=== PATIENT | female | born 1975 | race Caucasian/White ===

== ENCOUNTER 2020-04-01 22:31 | Inpatient (IN) | payer MEDICAID, OTHER ==
[~2020-04-01] VITALS: Ht 152.4 cm; Wt 79.4 kg
[2020-04-01] MEDS ORDERED: DEXAMETHASONE 4MG/ML 1ML VIAL IV SCH (23:45)
[2020-04-01] MEDS ORDERED: ASPIRIN 81MG TABLET PO ONE (23:45)
[2020-04-02 00:21] LABS: BASOPHILS % 0.1 % (0.0-2.0); CHLORIDE 104 mEq/L (98-107); HEMATOCRIT. 43.3 % (36.0-48.0); HEMOGLOBIN. 14.8 g/dL (12.0-16.0); LYMPHOCYTES % 13.6 % (20.0-50.0); MEAN CORPUSCULAR HEMOGLOBIN 29.1 pg (28.0-32.0); MEAN CORPUSCULAR VOLUME 85.3 fL (81.0-99.0); MEAN PLATELET VOLUME 7.8 fl (7.4-10.4); MONOCYTES % 3.9 % (2.0-8.0); NEUTROPHILS % 82.4 % (40.0-76.0); PLATELET 290 x1000/uL (130-400); RED BLOOD CELL COUNT 5.08 mill/uL (4.2-5.4); RED CELL DISTRIBUTION WIDTH 12.9 % (11.6-14.6)
[2020-04-02 01:11] LABS: D-DIMER 0.55 mg/L FEU (<0.50); PARTIAL THROMBOPLASTIN TIME 31.5 sec (23.4-31.0); PROTHROMBIN TIME 10.3 sec (9.6-11.0)
[2020-04-02] MEDS ORDERED: DOCUSATE SODIUM 100MG CAPSULE PO PRN (09:30)
[2020-04-02] MEDS ORDERED: MAGNESIUM/ALUMINUM HYDROXIDE/SIMETHICONE 30ML UDC PO PRN (09:30)
[2020-04-02] MEDS ORDERED: ONDANSETRON HCL 4MG/2ML INJ IV PRN (09:30)
[2020-04-02] MEDS ORDERED: DEXTROSE 50% WATER 50ML SYRINGE IV PRN (09:30)
[2020-04-02] MEDS ORDERED: CLONIDINE 0.1MG TABLET PO PRN (09:30)
[2020-04-02] MEDS ORDERED: MORPHINE SULFATE 2 MG/ML CPJ (NOT FOR IM USE) IV PRN (09:30)
[2020-04-02] MEDS ORDERED: ALBUTEROL 6.7GM HFA INHALER ORI PRN (09:30)
[2020-04-02] MEDS ORDERED: LORAZEPAM 2MG/ML CPJ IV PRN (09:30)
[2020-04-02] MEDS: ENOXAPARIN 40MG/0.4ML SYR SUBCUT SCH (10:30)
[2020-04-02] MEDS: CEFTRIAXONE 1,000 MG in DEXTROSE 5% WATER 50 ML IV SCH (10:30)
[2020-04-02] MEDS: BLOOD SUGAR DIAGNOSTIC STRIP TEST SCH ×3 (11:47→21:00)
[2020-04-02 12:15] LABS: BG BASE EXCESS -1.3 mmol/L (-2.0-2.0); BG CARBOXYHEMOGLOBIN 0.3 % (0.5-1.5); BG DEOXYHEMOGLOBIN 4.5 % (0.0-5.0); BG FRACTION INSPIRED OXYGEN 36; BG HCO3 ACT 22.2 mmol/L (22.0-26.0); BG METHEMOGLOBIN 0.1 % (0.0-1.5); BG OXYGEN SATURATION 95.5 % (92.0-98.5); BG OXYHEMOGLOBIN 95.1 % (94.0-97.0); BG PH 7.433 (7.350-7.450); BG PO2 79.3 mmHg (75.0-100.0); BG SAMPLE SITE RIGHT RADIAL; BG VENT MODE NASAL CANNULA
[2020-04-02] MEDS: INSULIN LISPRO 100 UNITS/ML SUBCUT SCH ×3 (12:41→21:00)
[2020-04-02] MEDS: SODIUM CHLORIDE 0.9% INJ 3ML FLUSH IVF SCH ×2 (14:57→22:38)
[2020-04-02 18:56] VITALS: BP 125/78
[2020-04-02] MEDS ORDERED: METF-414 PO (19:12)
[2020-04-02 20:00] VITALS: BP 126/69
[2020-04-02] MEDS: HYDROCODONE/ACETAMINOPHEN 5/325MG TABLET PO PRN (22:40)
[2020-04-03] VITALS: BP 132/75
[2020-04-03 04:00] VITALS: BP 113/64
[2020-04-03] MEDS: HYDROCODONE/ACETAMINOPHEN 5/325MG TABLET PO PRN ×2 (04:19→10:20)
[2020-04-03] MEDS: SODIUM CHLORIDE 0.9% INJ 3ML FLUSH IVF SCH ×3 (06:13→21:53)
[2020-04-03] MEDS: BLOOD SUGAR DIAGNOSTIC STRIP TEST SCH ×4 (06:13→21:53)
[2020-04-03] MEDS: INSULIN LISPRO 100 UNITS/ML SUBCUT SCH ×4 (06:16→22:47)
[2020-04-03 06:43] LABS: BASOPHILS % 0.2 % (0.0-2.0); HEMATOCRIT. 39.8 % (36.0-48.0); HEMOGLOBIN. 13.3 g/dL (12.0-16.0); LYMPHOCYTES % 20.1 % (20.0-50.0); MEAN CORPUSCULAR HEMOGLOBIN 28.6 pg (28.0-32.0); MEAN CORPUSCULAR VOLUME 85.3 fL (81.0-99.0); MEAN PLATELET VOLUME 7.6 fl (7.4-10.4); MONOCYTES % 4.9 % (2.0-8.0); NEUTROPHILS % 74.8 % (40.0-76.0); PLATELET 280 x1000/uL (130-400); RED BLOOD CELL COUNT 4.67 mill/uL (4.2-5.4); RED CELL DISTRIBUTION WIDTH 13.1 % (11.6-14.6)
[2020-04-03 06:59] LABS: CHLORIDE 105 mEq/L (98-107)
[2020-04-03 08:00] VITALS: BP 121/72
[2020-04-03] MEDS ORDERED: CEFTRIAXONE 1 G PREMIX 50 ML IV SCH (09:00)
[2020-04-03] MEDS: DEXAMETHASONE 10 MG/ML VIAL IV SCH (10:20)
[2020-04-03 12:00] VITALS: BP 122/74
[2020-04-03] MEDS: ENOXAPARIN 40MG/0.4ML SYR SUBCUT SCH (13:45)
[2020-04-03] MEDS: CEFTRIAXONE 1,000 MG in DEXTROSE 5% WATER 50 ML IV SCH (15:36)
[2020-04-03] MEDS: AZITHROMYCIN 500 MG in DEXT 5% WATER 250 ML IV SCH (15:38)
[2020-04-03 16:00] VITALS: BP 125/68
[2020-04-03 22:00] VITALS: BP 147/79
[2020-04-04] MEDS: DIPHENHYDRAMINE 50MG/ML VIAL IV PRN (01:23)
[2020-04-04] MEDS: GUAIFENESIN 200MG/10ML SUGAR FREE UDC PO PRN ×4 (02:00→22:15)
[2020-04-04 06:00] VITALS: BP 123/75
[2020-04-04] MEDS: SODIUM CHLORIDE 0.9% INJ 3ML FLUSH IVF SCH ×3 (06:26→20:28)
[2020-04-04] MEDS: BLOOD SUGAR DIAGNOSTIC STRIP TEST SCH ×4 (06:26→20:28)
[2020-04-04 08:00] VITALS: BP 118/76
[2020-04-04] MEDS: DEXAMETHASONE 10 MG/ML VIAL IV SCH (08:11)
[2020-04-04] MEDS: ENOXAPARIN 40MG/0.4ML SYR SUBCUT SCH (08:11)
[2020-04-04] MEDS: INSULIN LISPRO 100 UNITS/ML SUBCUT SCH ×4 (08:14→20:28)
[2020-04-04] MEDS: AZITHROMYCIN 500 MG in DEXT 5% WATER 250 ML IV SCH (09:59)
[2020-04-04] MEDS: CEFTRIAXONE 1,000 MG in DEXTROSE 5% WATER 50 ML IV SCH (09:59)
[2020-04-04 12:00] VITALS: BP 118/71
[2020-04-04 16:00] VITALS: BP 121/76
[2020-04-04 20:00] VITALS: BP 115/70
[2020-04-05] VITALS: BP 120/72
[2020-04-05] MEDS: GUAIFENESIN 200MG/10ML SUGAR FREE UDC PO PRN ×2 (02:32→20:34)
[2020-04-05 04:00] VITALS: BP 111/69
[2020-04-05] MEDS: SODIUM CHLORIDE 0.9% INJ 3ML FLUSH IVF SCH ×3 (06:00→20:33)
[2020-04-05] MEDS: BLOOD SUGAR DIAGNOSTIC STRIP TEST SCH ×4 (06:40→20:33)
[2020-04-05] MEDS: INSULIN LISPRO 100 UNITS/ML SUBCUT SCH ×4 (07:10→20:33)
[2020-04-05 08:00] VITALS: BP 133/69
[2020-04-05] MEDS: DEXAMETHASONE 10 MG/ML VIAL IV SCH (09:52)
[2020-04-05] MEDS: AZITHROMYCIN 500 MG in DEXT 5% WATER 250 ML IV SCH (09:53)
[2020-04-05] MEDS: CEFTRIAXONE 1,000 MG in DEXTROSE 5% WATER 50 ML IV SCH (09:53)
[2020-04-05] MEDS: ENOXAPARIN 40MG/0.4ML SYR SUBCUT SCH (09:53)
[2020-04-05] MEDS: HYDROCODONE/ACETAMINOPHEN 5/325MG TABLET PO PRN (10:24)
[2020-04-05 12:00] VITALS: BP 119/73
[2020-04-05 16:00] VITALS: BP 114/77
[2020-04-05] MEDS: ACETAMINOPHEN 325MG TABLET PO PRN (16:33)
[2020-04-05 20:00] VITALS: BP 120/71
[2020-04-06] VITALS: BP 126/66
[2020-04-06] MEDS: GUAIFENESIN 200MG/10ML SUGAR FREE UDC PO PRN ×2 (00:58→05:14)
[2020-04-06 04:00] VITALS: BP 123/68
[2020-04-06] MEDS: SODIUM CHLORIDE 0.9% INJ 3ML FLUSH IVF SCH ×3 (05:14→20:36)
[2020-04-06] MEDS: INSULIN LISPRO 100 UNITS/ML SUBCUT SCH ×4 (07:10→20:36)
[2020-04-06] MEDS: BLOOD SUGAR DIAGNOSTIC STRIP TEST SCH ×4 (07:20→20:36)
[2020-04-06 08:00] VITALS: BP 111/67
[2020-04-06] MEDS: DEXAMETHASONE 10 MG/ML VIAL IV SCH (08:43)
[2020-04-06] MEDS: AZITHROMYCIN 500 MG in DEXT 5% WATER 250 ML IV SCH (08:43)
[2020-04-06] MEDS: ENOXAPARIN 40MG/0.4ML SYR SUBCUT SCH (08:44)
[2020-04-06] MEDS: CEFTRIAXONE 1,000 MG in DEXTROSE 5% WATER 50 ML IV SCH (11:14)
[2020-04-06 12:00] VITALS: BP 126/71
[2020-04-06 16:00] VITALS: BP 118/66
[2020-04-06] MEDS: PROMETHAZINE/DEXTROMETHORPHAN 6.25-15MG/5ML BOTTLE 120ML PO PRN ×2 (19:05→23:57)
[2020-04-06 20:00] VITALS: BP 101/80
[2020-04-07] VITALS: BP 113/76
[2020-04-07 04:00] VITALS: BP 133/61
[2020-04-07] MEDS: PROMETHAZINE/DEXTROMETHORPHAN 6.25-15MG/5ML BOTTLE 120ML PO PRN ×3 (05:33→22:32)
[2020-04-07] MEDS: INSULIN LISPRO 100 UNITS/ML SUBCUT SCH ×4 (06:10→22:45)
[2020-04-07] MEDS: SODIUM CHLORIDE 0.9% INJ 3ML FLUSH IVF SCH ×3 (06:10→22:46)
[2020-04-07] MEDS: BLOOD SUGAR DIAGNOSTIC STRIP TEST SCH ×4 (06:10→21:00)
[2020-04-07] MEDS: ENOXAPARIN 40MG/0.4ML SYR SUBCUT SCH (09:17)
[2020-04-07] MEDS: CEFTRIAXONE 1,000 MG in DEXTROSE 5% WATER 50 ML IV SCH (09:17)
[2020-04-07] MEDS: DEXAMETHASONE 10 MG/ML VIAL IV SCH (09:17)
[2020-04-07] MEDS: AZITHROMYCIN 500 MG in DEXT 5% WATER 250 ML IV SCH (09:17)
[2020-04-07 12:00] VITALS: BP 113/67
[2020-04-07 16:00] VITALS: BP 113/65
[2020-04-07 20:00] VITALS: BP 109/70
[2020-04-08] VITALS: BP 109/70
[2020-04-08 04:00] VITALS: BP 112/76
[2020-04-08] MEDS: ACETAMINOPHEN 325MG TABLET PO PRN (04:50)
[2020-04-08] MEDS: BLOOD SUGAR DIAGNOSTIC STRIP TEST SCH ×4 (06:19→21:00)
[2020-04-08] MEDS: SODIUM CHLORIDE 0.9% INJ 3ML FLUSH IVF SCH ×3 (06:19→22:07)
[2020-04-08] MEDS: INSULIN LISPRO 100 UNITS/ML SUBCUT SCH ×4 (06:22→22:07)
[2020-04-08 08:00] VITALS: BP 128/65
[2020-04-08] MEDS: DEXAMETHASONE 10 MG/ML VIAL IV SCH (08:38)
[2020-04-08] MEDS: ENOXAPARIN 40MG/0.4ML SYR SUBCUT SCH (08:38)
[2020-04-08] MEDS: PROMETHAZINE/DEXTROMETHORPHAN 6.25-15MG/5ML BOTTLE 120ML PO PRN ×2 (11:55→16:45)
[2020-04-08 12:00] VITALS: BP 115/10
[2020-04-08 16:00] VITALS: BP 101/62
[2020-04-08 20:00] VITALS: BP 133/75
[2020-04-09] VITALS: BP 113/71
[2020-04-09] MEDS: GUAIFENESIN 200MG/10ML SUGAR FREE UDC PO PRN ×2 (02:01→22:47)
[2020-04-09 04:00] VITALS: BP 106/58
[2020-04-09] MEDS: BLOOD SUGAR DIAGNOSTIC STRIP TEST SCH ×4 (05:35→21:05)
[2020-04-09] MEDS: SODIUM CHLORIDE 0.9% INJ 3ML FLUSH IVF SCH ×3 (05:35→21:05)
[2020-04-09 08:00] VITALS: BP 102/64
[2020-04-09 12:00] VITALS: BP 105/65
[2020-04-09] MEDS: DEXAMETHASONE 10 MG/ML VIAL IV SCH (12:03)
[2020-04-09] MEDS: INSULIN LISPRO 100 UNITS/ML SUBCUT SCH ×4 (12:03→22:47)
[2020-04-09] MEDS: ENOXAPARIN 40MG/0.4ML SYR SUBCUT SCH (12:03)
[2020-04-09 13:46] LABS: BG BASE EXCESS -0.2 mmol/L (-2.0-2.0); BG CARBOXYHEMOGLOBIN 0.5 % (0.5-1.5); BG DEOXYHEMOGLOBIN 8.6 % (0.0-5.0); BG HCO3 ACT 22.3 mmol/L (22.0-26.0); BG OXYGEN SATURATION 91.4 % (92.0-98.5); BG OXYHEMOGLOBIN 90.9 % (94.0-97.0); BG PCO2 31.1 mmHg (35.0-45.0); BG PH 7.474 (7.350-7.450); BG PO2 57.2 mmHg (75.0-100.0); BG SAMPLE SITE RIGHT BRACHIAL; BG TOTAL HEMOGLOBIN 15.1 g/dL (12.0-18.0); BG VENT MODE ROOM AIR
[2020-04-09 16:00] VITALS: BP 113/91
[2020-04-09 20:00] VITALS: BP 116/74
[2020-04-09] MEDS: ACETAMINOPHEN 325MG TABLET PO PRN (22:47)
[2020-04-10] VITALS (7 sets, daily range): BP systolic 105–128; BP diastolic 58–82
[2020-04-10] MEDS: SODIUM CHLORIDE 0.9% INJ 3ML FLUSH IVF SCH ×3 (06:00→21:18)
[2020-04-10] MEDS: BLOOD SUGAR DIAGNOSTIC STRIP TEST SCH ×4 (06:30→20:56)
[2020-04-10] MEDS: ENOXAPARIN 40MG/0.4ML SYR SUBCUT SCH (10:57)
[2020-04-10] MEDS: DEXAMETHASONE 10 MG/ML VIAL IV SCH (10:57)
[2020-04-10] MEDS: INSULIN LISPRO 100 UNITS/ML SUBCUT SCH ×4 (10:59→21:18)
[2020-04-10] MEDS: GUAIFENESIN 200MG/10ML SUGAR FREE UDC PO PRN (13:14)
[2020-04-10] MEDS: ACETAMINOPHEN 325MG TABLET PO PRN (13:14)
[2020-04-11 04:00] VITALS: BP 104/66
[2020-04-11] MEDS: BLOOD SUGAR DIAGNOSTIC STRIP TEST SCH ×4 (06:27→21:01)
[2020-04-11] MEDS: SODIUM CHLORIDE 0.9% INJ 3ML FLUSH IVF SCH ×3 (06:27→21:01)
[2020-04-11 08:00] VITALS: BP 104/71
[2020-04-11] MEDS: DEXAMETHASONE 10 MG/ML VIAL IV SCH (08:17)
[2020-04-11] MEDS: INSULIN LISPRO 100 UNITS/ML SUBCUT SCH ×4 (08:18→21:05)
[2020-04-11] MEDS: ENOXAPARIN 40MG/0.4ML SYR SUBCUT SCH (08:18)
[2020-04-11 12:00] VITALS: BP 120/78
[2020-04-11 12:13] LABS: BG BASE EXCESS -2.3 mmol/L (-2.0-2.0); BG CARBOXYHEMOGLOBIN 0.4 % (0.5-1.5); BG DEOXYHEMOGLOBIN 9.4 % (0.0-5.0); BG HCO3 ACT 19.4 mmol/L (22.0-26.0); BG METHEMOGLOBIN 0.1 % (0.0-1.5); BG OXYGEN SATURATION 90.6 % (92.0-98.5); BG OXYHEMOGLOBIN 90.1 % (94.0-97.0); BG PCO2 26.5 mmHg (35.0-45.0); BG PH 7.483 (7.350-7.450); BG PO2 56.3 mmHg (75.0-100.0); BG SAMPLE SITE RIGHT BRACHIAL; BG VENT MODE ROOM AIR
[2020-04-11 16:00] VITALS: BP 116/70
[2020-04-11 20:00] VITALS: BP 117/70
[2020-04-11] MEDS: GUAIFENESIN 200MG/10ML SUGAR FREE UDC PO PRN (21:05)
[2020-04-12] VITALS: BP 120/69
[2020-04-12 04:00] VITALS: BP 138/69
[2020-04-12] MEDS: SODIUM CHLORIDE 0.9% INJ 3ML FLUSH IVF SCH ×3 (05:36→19:06)
[2020-04-12] MEDS: BLOOD SUGAR DIAGNOSTIC STRIP TEST SCH ×4 (07:09→21:03)
[2020-04-12 08:00] VITALS: BP 111/76
[2020-04-12] MEDS: INSULIN LISPRO 100 UNITS/ML SUBCUT SCH ×4 (09:21→21:04)
[2020-04-12] MEDS: DEXAMETHASONE 10 MG/ML VIAL IV SCH (10:57)
[2020-04-12] MEDS: ENOXAPARIN 40MG/0.4ML SYR SUBCUT SCH (10:58)
[2020-04-12 12:00] VITALS: BP 120/76
[2020-04-12 16:00] VITALS: BP 120/62
[2020-04-12] MEDS: ACETAMINOPHEN 325MG TABLET PO PRN (18:24)
[2020-04-12 20:00] VITALS: BP 117/70
[2020-04-12] MEDS: GUAIFENESIN 200MG/10ML SUGAR FREE UDC PO PRN (21:03)
[2020-04-13] VITALS: BP 106/70
[2020-04-13 04:00] VITALS: BP 137/70
[2020-04-13] MEDS: BLOOD SUGAR DIAGNOSTIC STRIP TEST SCH ×4 (07:02→21:01)
[2020-04-13] MEDS: INSULIN LISPRO 100 UNITS/ML SUBCUT SCH ×4 (07:02→21:05)
[2020-04-13 08:00] VITALS: BP 116/58
[2020-04-13 08:03] LABS: HEMATOCRIT 43.1 % (36.0-48.0); HEMOGLOBIN 14.4 g/dL (12.0-16.0); MEAN CORPUSCULAR HEMOGLOBIN 28.5 pg (28.0-32.0); MEAN CORPUSCULAR VOLUME 85.3 fL (81.0-99.0); PLATELET 383 x1000/uL (130-400); RED BLOOD CELL COUNT 5.05 mill/uL (4.2-5.4)
[2020-04-13 09:38] LABS: CHLORIDE 108 mEq/L (98-107)
[2020-04-13] MEDS: DEXAMETHASONE 10 MG/ML VIAL IV SCH (10:49)
[2020-04-13] MEDS: ENOXAPARIN 40MG/0.4ML SYR SUBCUT SCH (10:50)
[2020-04-13 12:00] VITALS: BP 118/56
[2020-04-13 16:00] VITALS: BP 117/62
[2020-04-13] MEDS: SODIUM CHLORIDE 0.9% INJ 3ML FLUSH IVF SCH ×2 (17:45→21:03)
[2020-04-13 20:00] VITALS: BP 136/64
[2020-04-13] MEDS: DIPHENHYDRAMINE 50MG/ML VIAL IV PRN (21:08)
[2020-04-14] VITALS: BP 105/72
[2020-04-14 04:00] VITALS: BP 104/63
[2020-04-14] MEDS: SODIUM CHLORIDE 0.9% INJ 3ML FLUSH IVF SCH ×3 (06:05→21:45)
[2020-04-14] MEDS: BLOOD SUGAR DIAGNOSTIC STRIP TEST SCH ×4 (06:36→21:45)
[2020-04-14] MEDS: INSULIN LISPRO 100 UNITS/ML SUBCUT SCH ×4 (06:36→21:45)
[2020-04-14 08:00] VITALS: BP 138/78
[2020-04-14] MEDS: DEXAMETHASONE 10 MG/ML VIAL IV SCH (09:59)
[2020-04-14] MEDS: ENOXAPARIN 40MG/0.4ML SYR SUBCUT SCH (10:00)
[2020-04-14 12:00] VITALS: BP 116/66
[2020-04-14 16:00] VITALS: BP 125/59
[2020-04-14 20:00] VITALS: BP 114/65
[2020-04-15] VITALS: BP 140/84
[2020-04-15 04:00] VITALS: BP 108/68
[2020-04-15] MEDS: SODIUM CHLORIDE 0.9% INJ 3ML FLUSH IVF SCH (06:23)
[2020-04-15] MEDS: BLOOD SUGAR DIAGNOSTIC STRIP TEST SCH (06:23)
[2020-04-15 08:00] VITALS: BP 114/80
[2020-04-15] MEDS: ENOXAPARIN 40MG/0.4ML SYR SUBCUT SCH (09:00)
[2020-04-15] MEDS: DEXAMETHASONE 10 MG/ML VIAL IV SCH (10:23)
[2020-04-15 11:09] VITALS: BP 110/80
[2020-04-15 12:00] VITALS: BP 116/79
== END 2020-04-15 13:25 | disposition home or self-care (01) | DRG 137 ==
LOC: ER 22:31 → MICUSO 23:52 → 7EST 04-02 14:30
PROVIDERS: ADMIT Internal Medicine; ATTEND Internal Medicine
DX: U07.1 COVID-19 (principal); J12.82 Pneumonia due to coronavirus disease 2019; E66.9 Obesity, unspecified; J96.00 Acute respiratory failure, unspecified whether with hypoxia or hypercapnia; Z79.84 Long term (current) use of oral hypoglycemic drugs; Z68.34 Body mass index [BMI] 34.0-34.9, adult; E11.65 Type 2 diabetes mellitus with hyperglycemia; R65.11 Systemic inflammatory response syndrome (SIRS) of non-infectious origin with acute organ dysfunction
CPT/HCPCS: 36415; 36600; 71045; 80048; 80053; 82375; 82805; 82962; 83036; 83605; 83880; 84145; 84484; 85025; 85027; 85379; 87804; 93005; 99285; J0456; J0696; J1100; J1200; J1650; J1815; J2270; J2405; J7040; J7060; U0003